=== PATIENT | female | born 1970 | race Caucasian/White ===

== ENCOUNTER 2022-05-27 12:25 | Emergency (ER) | payer BC ==
[~2022-05-27] VITALS: Ht 157.5 cm; Wt 99.8 kg
[2022-05-27] MEDS ORDERED: ASPirin 81 mg TAB PO ONE (12:45)
[2022-05-27] MEDS ORDERED: NITROGLYCERIN 0.4 MG SL TAB SL ONE (12:45)
[2022-05-27 13:15] LABS: Basophils # (auto) 0.1 10 ^3/uL (0-0.2); Basophils % (auto) 0.8 % (0.0-2.0); Eosinophils # (auto) 0.2 10 ^3/uL (0-0.8); Eosinophils % (auto) 2.3 % (0.0-7.0); Hematocrit 45.1 % (36.0-46.0); Hemoglobin 15.2 g/dL (12.2-16.2); Lymphocytes % (auto) 29.2 % (10.0-50.0); Mean Corpuscular Hemoglobin 29.9 pg (28.0-32.0); Mean Corpuscular Hgb Conc. 33.8 g/dL (32.0-36.0); Mean Corpuscular Volume 88.5 fL (80.0-100.0); Monocytes # (auto) 0.5 10 ^3/uL (0-1.3); Monocytes % (auto) 7.4 % (0.0-12.0); Neutrophils % (auto) 60.3 % (37.0-80.0); Red Blood Cells 5.09 10^6/uL (4.0-5.20); White Blood Cell 6.7 10^3/uL (4.4-10.8)
[2022-05-27 13:33] LABS: Albumin 3.6 g/dL (3.4-5.0); Calcium 8.5 mg/dL (8.5-10.1); Potassium 3.9 mmol/L (3.5-5.1)
[2022-05-27 13:37] LABS: BUN/Creatinine Ratio 15.7; Bilirubin, Total 0.4 mg/dL (0.2-1.0); Total Protein 7.2 g/dL (6.4-8.2)
[2022-05-27] MEDS ORDERED: ONDANSETRON HCL 4 MG/2 ML VIAL IV ONE (14:30)
[2022-05-27] MEDS ORDERED: MORPHINE SULFATE 4 MG/ML SYR/VIAL IV ONE (14:30)
[2022-05-27 15:22] LABS: Urine Bacteria FEW /hpf (None Seen); Urine Blood Negative /uL (Negative); Urine Mucus FEW (None Seen); Urine Specific Gravity 1.017 (1.001-1.035); Urine WBC 2 /hpf (0 - 5)
[2022-05-27] MEDS ORDERED: KETOROLAC TROMETH 30 MG/ML 1ML VIAL IV ONE (17:00)
[2022-05-27 17:31] VITALS: BP 121/80
[2022-05-27] MEDS ORDERED: IBU600T PO (18:03)
== END 2022-05-27 18:58 | disposition home or self-care (01) ==
LOC: EDBD 12:25 → ER 12:25
DX: R07.89 Other chest pain (principal); R09.1 Pleurisy; F17.210 Nicotine dependence, cigarettes, uncomplicated
CPT/HCPCS: 36415; 71045; 80053; 81001; 84484; 85025; 93005; 96374; 96375; 99285; J1885; J2270; J2405